=== PATIENT | female | born 1975 | race Caucasian/White ===

== ENCOUNTER → 2019-09-10 | Outpatient (CLI) | payer BC | END | disposition home or self-care (01) | LOC: LABWHC1 10:22 | PROVIDERS: ATTEND Family Medicine | DX: Z11.59 Encounter for screening for other viral diseases (principal) ==

== ENCOUNTER → 2019-12-30 | Outpatient (CLI) | payer BC | END | disposition home or self-care (01) | LOC: LABWHC1 16:50 | PROVIDERS: ATTEND Family Medicine | DX: R05 Cough (principal); R06.02 Shortness of breath | CPT/HCPCS: U0003; C9803 ==

== ENCOUNTER → 2022-07-19 | Outpatient (CLI) | payer BC ==
--- NOTE | 2022-07-20 19:27 | MM ---
Reason for Exam: Screening (asymptomatic). Patient History: Menarche at age 11. First Full-Term at age 20. Patient has history of breast feeding. Last menstrual period: 06/23/2022 Risk Values: Kalie 5 year model risk: 0.7%. NCI Lifetime model risk: 7.6%. Tissue Density: There are scattered fibroglandular densities. Findings: Analyzed By CAD. On the right, there is a nodular density medially at a middle to posterior depth for which further evaluation is recommended. On the left, nodular focal asymmetry approximately 10:00 position middle depth for which further evaluation is recommended. No suspicious microcalcification or other discrete abnormality is seen. Overall Assessment: Incomplete: need additional imaging evaluation, BI-RAD 0 Management: Special View Mammogram of both breasts. Diagnostic Breast Ultrasound of both breasts. Targeted ultrasound if any persisting abnormality on either side. Electronically signed and approved by: Tanner Mclean M.D. Radiologist
== END | disposition home or self-care (01) ==
LOC: RADMAMWWP 16:00
PROVIDERS: ATTEND Family Medicine
DX: Z12.31 Encounter for screening mammogram for malignant neoplasm of breast (principal)
CPT/HCPCS: 77067

== ENCOUNTER → 2022-09-01 | Outpatient (CLI) | payer BC ==
--- NOTE | 2022-09-01 11:54 | USB ---
Reason for Exam: Additional evaluation requested from abnormal screening. Patient History: Menarche at age 11. First Full-Term at age 20. Patient has history of breast feeding. Risk Values: Kalie 5 year model risk: 0.7%. NCI Lifetime model risk: 7.6%. Technique: Method: Targeted. Prior Study Comparison: 07/19/2022 Bilateral MG screening mammo w CAD, [facility]. Findings: The medial section of the breast of both breasts, the axilla of both breasts and the retroareolar of both breasts were scanned. Right breast: At the right 1:00 position 10 cm from the nipple there is a 1.4 cm hypoechoic area requires further evaluation with tissue sampling. Left breast: The small density seen on mammography within the left breast is not confirmed. No solid or cystic lesions are noted. Six-month follow-up mammography is advised. Overall Assessment: Suspicious, BI-RAD 4 Management: Ultrasound Core Biopsy of the right breast. A clinical breast exam by your physician is recommended on an annual basis and results should be correlated with mammographic findings. This exam should not preclude additional follow-up of suspicious palpable abnormalities. Results were given to the patient verbally at the time of exam. Electronically signed and approved by: Petey Ulrich M.D. Radiologis
--- NOTE | 2022-09-01 13:25 | MM ---
Reason for Exam: Additional evaluation requested from abnormal screening. Last screening mammogram was performed 1 month(s) ago. Patient History: Menarche at age 11. First Full-Term at age 20. Patient has history of breast feeding. Risk Values: Kalie 5 year model risk: 0.7%. NCI Lifetime model risk: 7.6%. Prior Study Comparison: 07/19/2022 Bilateral MG screening mammo w CAD, [facility]. Tissue Density: The breast tissue is heterogeneously dense. This may lower the sensitivity of mammography. Findings: Analyzed By CAD. The right 1:00 position approximately 10 cm from the nipple measuring 1.7 cm is a persistent nodular density. Ultrasound is recommended. At the left 9:00 position there is a 5 mm nodular density approximately 9 cm from the nipple. Bilateral targeted ultrasound is advised. Overall Assessment: Incomplete: need additional imaging evaluation, BI-RAD 0 Management: Diagnostic Breast Ultrasound of both breasts. . Results were given to the patient verbally at the time of exam. Patient should continue monthly self-breast exams. A clinical breast exam by your physician is recommended on an annual basis. This exam should not preclude additional follow-up of suspicious palpable abnormalities. Note on Kalie scores and lifetime risk: 1. A Kalie score greater than 3% is considered moderate risk. If this is the case, consider specialist referral to assess eligibility for a risk reducing agent. 2. If overall lifetime risk for the development of breast cancer is 20% or higher, the patient may qualify for future screening with alternating mammogram and breast MRI. Electronically signed and approved by: Petey Ulrcih M.D. Radiologis
== END | disposition home or self-care (01) ==
LOC: RADMAMWWP 10:30
PROVIDERS: ATTEND Family Medicine
DX: R92.8 Other abnormal and inconclusive findings on diagnostic imaging of breast (principal)
CPT/HCPCS: 77062; 77066

== ENCOUNTER → 2022-09-13 | Day surgery (SDC) | payer BC ==
--- NOTE | 2022-09-15 10:00 | MM ---
Reason for Exam: Post Procedure Mammogram. Last screening mammogram was performed less than 1 month ago. Patient History: Menarche at age 11. First Full-Term at age 20. Patient has history of breast feeding. Risk Values: Kalie 5 year model risk: 0.7%. NCI Lifetime model risk: 7.6%. Prior Study Comparison: 07/19/2022 Bilateral MG screening mammo w CAD, [facility]. 09/01/2022 Bilateral MG 3D work up w/cad JP, [facility]. Tissue Density: Right: The breast tissue is heterogeneously dense. This may lower the sensitivity of mammography. Pathology Description: Location: 1 o'clock, upper inner quadrant. Marker Left Behind. Needle Type: [facility] Cores: 4 Gauge: 12 The procedure of ultrasound guided core biopsy was explained to the patient. Benefits, alternatives, and risks were discussed. An informed consent was then obtained. The patient was placed in supine positioning for imaging and for the procedure. The overlying skin was prepped and draped in usual sterile fashion. Lidocaine buffered with bicarbonate was used as anesthetic into the skin and subcutaneous tissue up to area of concern in the right 1:00 breast. A brock was made with surgical scalpel. Under ultrasound guidance, a 12-gauge vacuum assisted biopsy gun device was used to obtain 4 core samples. Following this, a biopsy clip was left in lesion. The patient tolerated the procedure well without any immediate complication. The patient was kept in the radiology department for short stay after the procedure and then discharged home in stable condition. Postprocedure mammogram: The patient was transferred to mammography for physician ordered post procedure mammogram for clip placement verification. Impression: Successful, uncomplicated ultrasound guided core biopsy of area of concern in the right 1:00 breast, full pathology results to follow. Pathology Results: Result: Benign, Fibroadenoma. RIGHT BREAST, 1:00 POSITION, ULTRASOUND GUIDED CORE BIOPSY: Benign fibroadenoma with myxoid change. Overall Assessment: Benign Assessment: MG diagnostic mammo RT wo CAD - Right: Benign, BI-RAD 2. Management: Diagnostic Mammogram of the right breast in 6 months. Electronically signed and approved by: Petey Ulrich M.D. Radiologis
== END ==
LOC: RADUSWWP 07:54
PROVIDERS: ATTEND Surgery
DX: D24.1 Benign neoplasm of right breast (principal)
CPT/HCPCS: 88305; 77065; 19083; A4648

== ENCOUNTER → 2022-09-22 | Outpatient (CLI) | payer BC ==
[2022-09-22 07:52] VITALS: BP 130/83; PULSE 106; RESP 17; TEMP 97.9
--- NOTE | 2022-09-22 08:08 | P.GSHP ---
History of Present Illness H&P Date: 09/22/22 Chief Complaint: Fibroadenoma right breast Kaela is a 47-year-old female [place] [address]. This led to bilateral ultrasound and [id number]. Nothing of concern was noted in the left breast. In the right breast a 1.4 cm lesion was identi fied and ultrasound core biopsy was recommended. Core biopsy was performed on 1563. This revealed a fibroadenoma with myxoid change. This was her first mammogram. She does not feel any lumps masses or nodules of concern in either breast. She has not had any surgery on her breast. She is not complaining of any recent trauma or infection of the breast. Caffeine: coffee/2 cups/day nicotine: none chocolate: weekly BCP: still taking them since 20 hormones: none Family History: mother: from renal cancer maternal grandmother: ovarian cancer from this sister: breast cancer, dx. at 54 Hormonal History: menarche: 11 , breast fed: yes, age at first : 20f periods regular; LMP now Surgical History: tonsillectomy cyst right foot Medical History: asthma Polycystic ovarian disease Arthritis/bone spurs affecting left hip Social history: Nicotine: Negative Alcohol: occasional drugs: none - Constitutional Constitutional: Reports sweats - EENT Eyes: denies blurred vision, denies pain Ears: deny: decreased hearing, tinnitus Ears, nose, mouth and throat: Denies headache, Denies sore throat - Breasts Breasts: bilateral: as per HPI - Cardiovascular Cardiovascular: Denies chest pain, Denies shortness of breath - Respiratory Comment: asthma - Gastrointestinal Gastrointestinal: Denies abdominal pain, Denies diarrhea, Denies nausea, Denies vomiting - Genitourinary (Female) Genitourinary: Denies dysuria, Denies hematuria - Menstruation Menstruation: Reports period normal - Musculoskeletal Musculoskeletal: Reports as per HPI, Reports myalgias - Integumentary Integumentary: Denies pruritus, Denies rash - Neurological Neurological: Denies numbness, Denies weakness - Psychiatric Psychiatric: Denies anxiety, Denies depression - Endocrine Endocrine: Reports fatigue, Reports weight change - Hematologic/Lymphatic Comment: none - Allergic/Immunologic Allergic/Immunologic: Reports seasonal allergies Past Medical History Past Medical History: Asthma History of Any Multi-Drug Resistant Organisms: None Reported Past Surgical History: Section, Tonsillectomy Past Anesthesia/Blood Transfusion Reactions: No Reported Reaction Past Psychological History: No Psychological Hx Reported Smoking Status: Never smoker Past Alcohol Use History: Occasional Past Drug Use History: None Reported Medications and Allergies Home Medications Medication Instructions Recorded Confirmed Type Albuterol Inhaler [Ventolin Hfa 1 puff INHALATION TID 09/04/22 09/22/22 History Inhaler] Fluticasone Propion/Salmeterol 1 puff INHALATION DIRECTED 09/22/22 09/22/22 History [Advair 500-50 Diskus] Allergies Allergy/AdvReac Type Severity Reaction Status Date / Time erythromycin base AdvReac Nausea & Verified 09/22/22 07:40 Vomiting Surgical - Exam - General no distress - Eyes normal ocular movement - ENT no hearing loss - Neck trachea midline - Respiratory normal respiratory effort, clear to auscultation - Cardiovascular Rhythm: regular Heart Sounds: normal: S1, S2 - Abdomen Abdomen: soft, non tender, no guarding, no rigid, no rebound - Integumentary normal turgor - Neurologic no disoriented, no combative - Musculoskeletal normal gait, normal posture - Psychiatric oriented to time, oriented to person, oriented to place, speech is normal, m bessy intact Breast Exam: Bra: 40DDD Inspection: Bilateral grade 2 ptosis Palpation: Right breast: Multiple positional exam fibrocystic changes no dominant masses or nodules of concern, ecchymosis at 12 o'clock position related to recent core biopsy no evidence of infection or hematoma Right axilla: No adenopathy of concern Left breast: Multi-positional exam fibrocystic changes no dominant masses or nodules of concern Left axilla: No adenopathy of concern Results Mammogram and ultrasound results reviewed Assessment and Plan Assessment: Impression: 1.4 cm fibroadenoma right breast on core biopsy Macromastia No dominant masses or nodules of concern on examination on either breast Plan: Close surveillance bilateral ultrasound in 6 months with physician exam at that time At this time I would recommend the patient not take any hormone supplements we have discussed genetic testing she has declined at this time She does have left hip pain at this time and is planning to have left hip replacement in the near future Patient will follow up sooner any questions or concerns CC: Dr. Urias
== END ==
LOC: WWCWWP 07:36
PROVIDERS: ATTEND Surgery
DX: R92.8 Other abnormal and inconclusive findings on diagnostic imaging of breast (principal); D24.1 Benign neoplasm of right breast; J45.909 Unspecified asthma, uncomplicated; Z80.3 Family history of malignant neoplasm of breast; E28.2 Polycystic ovarian syndrome; M19.90 Unspecified osteoarthritis, unspecified site; Z79.51 Long term (current) use of inhaled steroids; Z88.1 Allergy status to other antibiotic agents

== ENCOUNTER → 2022-10-30 | Outpatient (CLI) | payer BC ==
[2022-10-30 11:02] LABS: INR 0.9 (<1.2); Prothrombin Time 9.7 sec (9.0-12.0)
--- NOTE | 2022-10-30 11:08 | XR ---
EXAMINATION TYPE: XR chest 2V DATE OF EXAM: 10/30/2022 COMPARISON: NONE TECHNIQUE: PA and lateral views submitted. HISTORY: Presurgical FINDINGS: The lungs are clear and there is no pneumothorax, pleural effusion, or focal pneumonia. Heart size normal and no overt failure. Osseous structures demonstrate hypertrophic and degenerative changes of the spine. IMPRESSION: 1. No acute process.
[2022-10-30 16:59] LABS: Blood Urea Nitrogen 9.1 mg/dL (9.0-27.0); Calcium 9.3 mg/dL (8.7-10.3); Carbon Dioxide 25.6 mmol/L (21.6-31.8); Chloride 106 mmol/L (96-109); Glucose 92 mg/dL (70-110); Potassium 4.3 mmol/L (3.5-5.5); Sodium 140 mmol/L (135-145)
[2022-10-30 17:19] LABS: Basophils # (A) 0.06 X 10*3/uL (0.00-0.10); Basophils % (A) 0.7 %; Eosinophils # (A) 0.38 X 10*3/uL (0.04-0.35); Eosinophils % (A) 4.6 %; HCT 41.7 % (37.2-46.3); HGB 13.2 d/dL (12.0-15.0); Lymphocytes # (A) 2.52 X 10*3/uL (0.90-5.00); Lymphocytes % (A) 30.8 %; MCH 28.8 pg (27.0-32.0); MCHC 31.7 d/dL (32.0-37.0); Monocytes # (A) 0.47 X 10*3/uL (0.20-1.00); Monocytes % (A) 5.7 %; NRBC Per 100 WBC 0 X 10*3/uL (0.00-0.01); Neutrophils # (A) 4.73 X 10*3/uL (1.80-7.70); Platelet Count 293 X 10*3/uL (140-440); RBC 4.58 X 10*6/uL (4.10-5.20); RDW 14.6 % (11.5-14.5); WBC 8.18 X 10*3/uL (4.50-10.00)
== END | disposition home or self-care (01) ==
LOC: LABPAT 10:19
PROVIDERS: ATTEND Orthopaedic Surgery
DX: Z01.812 Encounter for preprocedural laboratory examination (principal); Z22.322 Carrier or suspected carrier of Methicillin resistant Staphylococcus aureus
CPT/HCPCS: 71046; 80048; 85025; 85610; 85730; 87070

== ENCOUNTER 2022-11-06 05:49 | Day surgery (SDC) | payer BC ==
[2022-10-30 10:06] VITALS: BMI 36.8
[~2022-11-06 05:49] MED LIST: ACETAMINOPHEN TAB 500 MG TAB PO PRN; MELOXICAM 7.5 MG TAB PO PRN; TRANEXAMIC 1,000 MG/100ML-NACL 1,000 MG in SALINE 1 100ML.BAG IVPB PRN
[2022-11-06] MEDS ORDERED: LACTATED RINGERS 1,000 ML IV SCH (06:08)
[2022-11-06] MEDS ORDERED: ONDANSETRON 4 MG/2 ML VIAL IVP ONE ×2 (06:08→14:22)
[2022-11-06] MEDS ORDERED: DEXAMETHASONE SOD PHOSPHATE 4 MG/ML 1 ML VIAL IV ONE (06:08)
[2022-11-06] MEDS ORDERED: HYDROmorphone 0.5 MG/0.5 ML SYRINGE IVP PRN ×3 (06:08→09:31)
[2022-11-06] MEDS ORDERED: fentaNYL (PF) 50 MCG/ML 2 ML AMP IVP ONE (06:56)
[2022-11-06] MEDS ORDERED: MIDAZOLAM 2 MG/2 ML VIAL IVP ONE (06:56)
[2022-11-06] MEDS ORDERED: HYDROmorphone (PF) 1 MG/ML ONE (07:30)
[2022-11-06] MEDS ORDERED: PROPOFOL 10 MG/ML 20 ML VIAL IV ONE (07:30)
[2022-11-06] MEDS ORDERED: GLYCOPYRROLATE 0.2 MG/ML 2 ML VIAL ONE (07:30)
[2022-11-06] MEDS ORDERED: LIDOCAINE 2% INJ 20 MG/ML (2 ML VIAL) ONE (07:30)
[2022-11-06] MEDS ORDERED: ROPIVACAINE 5 MG/ML 30 ML VIAL ONE (07:30)
[2022-11-06] MEDS ORDERED: TRANEXAMIC 1,000 MG/100ML-NACL PREMIX BAG ONE (07:30)
[2022-11-06] MEDS ORDERED: SUCCINYLCHOLINE CHLORIDE 200 MG/10 ML VIAL IV ONE (07:30)
[2022-11-06] MEDS ORDERED: NEOSTIGMINE 1 MG/ML 10 ML VIAL ONE (07:30)
[2022-11-06] MEDS ORDERED: fentaNYL (PF) 50 MCG/ML 2 ML AMP ONE (07:30)
[2022-11-06] MEDS ORDERED: MIDAZOLAM 2 MG/2 ML VIAL ONE (07:30)
[2022-11-06] MEDS ORDERED: ROCURONIUM 10 MG/ML (5 ML VIAL) IV ONE (07:30)
[2022-11-06] MEDS ORDERED: ceFAZolin 1,000 MG in SODIUM CHLORIDE 0.9% 1,000 ML IRRIGATION ONE (08:04)
--- NOTE | 2022-11-06 09:25 | P.HPOR ---
History of Present Illness H&P Date: 11/06/22 Chief Complaint: Left hip osteoarthritis 47-year-old patient seen with symptomatic left hip osteoarthritis. After treatment options discussed, she elected to proceed with direct anterior left total hip arthroplasty. Past Medical History Past Medical History: Asthma, Osteoarthritis (OA) Additional Past Medical History / Comment(s): Gall bladder attack twice in last 3 yrs. History of Any Multi-Drug Resistant Organisms: None Reported Past Surgical History: Section, Tonsillectomy Additional Past Surgical History / Comment(s): Right breast biopsy. Section X1. Past Anesthesia/Blood Transfusion Reactions: No Reported Reaction Past Psychological History: No Psychological Hx Reported Smoking Status: Never smoker Past Alcohol Use History: Occasional Past Drug Use History: None Reported - Past Family History Mother Family Medical History: Cancer Additional Family Medical History / Comment(s): Renal cancer. Father Family Medical History: Cancer, Deep Vein Thrombosis (DVT) Additional Family Medical History / Comment(s): Skin cancer. Heart problems from alcohol use. Medications and Allergies Home Medications Medication Instructions Recorded Confirmed Type Albuterol Inhaler [Ventolin Hfa 1 puff INHALATION TID PRN 09/04/22 11/06/22 History Inhaler] Fluticasone Propion/Salmeterol 1 puff INHALATION DIRECTED PRN 09/22/22 11/06/22 History [Advair 500-50 Diskus] Allergies Allergy/AdvReac Type Severity Reaction Status Date / Time erythromycin base AdvReac Nausea & Verified 11/06/22 06:18 Vomiting Physical Examination Osteopathic Statement: *. No significant issues noted on an osteopathic structural exam other than those noted in the History and Physical/Consult. Diffuse tenderness about the left hip girdle. Limited range of motion left hip with severe pain. Positive hip impingement sign. Straight leg raise negative. Distal neurovascular exam is intact. Results - Diagnostic results Hip x-ray: image reviewed (Severe left hip osteoarthritis) Assessment and Plan Assessment: Left hip osteoarthritis Plan: Direct anterior left total hip arthroplasty Time with Patient: Less than 30
[2022-11-06] MEDS ORDERED: LACTATED RINGERS 1,000 ML IV ONE ×2 (09:31→11:07)
[2022-11-06] MEDS ORDERED: HYDROmorphone 1 MG/ML 1 ML SYRINGE IVP PRN (09:31)
[2022-11-06] MEDS ORDERED: HYDROcodone/APAP 5-325MG 1 EACH TAB PO PRN (09:31)
[2022-11-06] MEDS ORDERED: ONDANSETRON 4 MG/2 ML VIAL IVP PRN (09:31)
[2022-11-06] MEDS ORDERED: NALOXONE 0.4 MG/ML 1 ML VIAL IV PRN (09:31)
[2022-11-06] MEDS ORDERED: HYDROcodone/APAP 7.5-325MG 1 EACH TAB PO PRN (09:31)
--- NOTE | 2022-11-06 09:31 | P.OP ---
Date of Procedure: 11/06/22 Preoperative Diagnosis: Left hip osteoarthritis Postoperative Diagnosis: Left hip osteoarthritis Procedure(s) Performed: Direct anterior left total hip arthroplasty Implants: 1. Hugo Corail KLA size 9 high offset with collar present femoral stem 2. Glad[place]ne 52 mm press-fit acetabular shell 3. [place]ne neutral polyethylene acetabular liner 36 mm ID 52 mm OD 4. Biolox delta ceramic femoral head +1.5 36 mm Anesthesia: GETA, regional (erector spinae block) Surgeon: Durga Paul Kennel Hand #1: Carlos Manuel Lutz Estimated Blood Loss (ml): 65 Pathology: none sent Condition: stable Disposition: PACU Indications for Procedure: 47-year-old patient was seen with symptomatic left hip osteoarthritis. After having treatment options discussed, she elected to proceed with direct anterior left total hip arthroplasty. Operative Findings: see description of procedure Description of Procedure: The patient was taken to the operative suite. Patient underwent a general anest hetic by the department of anesthesia. Patient was then transferred to the Joffre table. Patient was given preoperative IV antibiotics and TXA. Both lower extremities were placed in standard leg spars. The hip was then prepped and draped in the normal sterile orthopedic fashion. A standard anterior incision was made beginning 3 cm lateral and 1 cm distal to the ASIS extending 10 cm. Dissection was then carried down through the subcutaneous soft tissues down to the fascia overlying the tensor fascia bee. An incision was now made through the fascia. Careful dissection was taken down exposing the tensor fascia bee muscle. A Cobra retractor was now placed along the medial femoral neck and a second one along the lateral femoral neck. The venous circumflex vessels were now identified, cauterized and clipped. We identified the anterior hip capsule. An incision was made through the hip capsule along the lateral border. I performed a partial anterior capsulectomy. Retractors were now placed around the femoral neck itself. A femoral neck cut was now made with a sagittal saw. It was completed with an osteotome at the lateral neck area. The femoral head was now removed without difficulty. The extremity was now rotated to 60 of external rotation. It was locked in position. Residual labrum was now debrided out. Serial reaming was performed of the acetabulum while Nehemiah RAYA assisted holding an anterior retractor for exposure. Once we reached the appropriate size and a trial was position and fit nicely. The appropriate size was now chosen opened and made available. It was introduced into the acetabulum without difficulty. The C-arm/fluoroscopy was now brought into the operative field. We made sure we had a true AP pelvic view. We now under direct C-arm/ fluoroscopy introduced into the acetabular component with appropriate version and inclination. I held the cup in appropriate position well Nehemiah RAYA used a mallet to seat the acetabular component. I noted the component now to be well seated and stable. Acetabular cup introduce her was removed. The C-arm was pulled back. An appropriate liner was introduced and clicked into position. It was felt to be stable. At this point retractors were removed. The extremity was now placed into 140 external rotation with no traction. The leg was now dropped to the ground and adducted. Appropriate retractors were now positioned along the proximal femur. We also placed our femoral look into position. Additional capsular releasing was performed to gain access to the proximal femur. We now used a box osteotome. A canal finder was now utilized. Serial broaching was now performed with the assistance of Nehemiah RAYA tapping the broaches down with a mallet while held the broach in appropriate rotation and position. This was done until we reached the appropriate size with good overall rotational stability. Appropriate calcar planing was performed. A trial head/neck was placed into position. The hip was now reduced. The C- arm/fluoroscopy was brought back into the operative field. I obtained AP pelvis was demonstrated adequate leg length alignment. The trial components appeared adequately sized and positioned. The C-arm/fluoroscopy was pulled back. Retractors were repositioned and the hip was dislocated. The leg was again taken down to the ground and adducted. Appropriate retractors were repositioned as well as the femoral hook. All trial components were removed. The femoral implant was opened along with the femoral head. The femoral implant was introduced on the appropriate handle into our pre-broached area. I held the component position well Nehmeiah RAYA used a mallet to seat the femoral component. The femoral component was now noted to be well seated and stable.. The femoral head was introduced with good positioning and fixation noted. Retractors were now removed. The hip was now reduced. There appeared be good positioning of the hip confirmed on intraoperative fluoroscopy. Spot films were obtained to document this. A second gram of TXA was given. Bipolar cautery had been utilized intermittently through the procedure for hemostasis. The wound was irrigated copiously with pulse lavage mechanical irrigation. The fascia was repaired with Vicryl suture. The subcutaneous soft tissues were repaired in layers with Vicryl suture. The skin was approximated with pernio/Dermabond. Sterile dressings were applied. Patient was then awakened, transferred to a bed and taken to recovery in stable condition. Nehemiah RAYA assisted with the complex procedure.
[2022-11-06 09:43] VITALS: TEMP 97
[2022-11-06] MEDS ORDERED: HYDROmorphone 0.5 MG/0.5 ML SYRINGE IVP ONE ×4 (09:49→14:19)
--- NOTE | 2022-11-06 10:44 | P.ANPRN ---
Procedure Note - Anesthesia - Nerve Block Performed Left Stevenson Single Time Out Performed: Yes ([id number]) Date of Procedure: 11/06/22 Procedure Start Time: 06:57 Procedure Stop Time: 07:04 Location of Patient: PreOp Indication: Acute Post-Operative Pain, Requested by Surgeon Specifically requested for management of pain by DrSalvador: Durga Paul Sedation Type: Sedate with meaningful contact maintained Preparation: Sterile Prep Position: Supine Catheter: None Needle Types: Pajunk Needle Gauge: 21 Ultrasound used to visualize needle placement: Yes Ultrasound used to observe medication spread: Yes Injectate: 0.5% Ropivacaine (see comment for volume) (30cc) Blood Aspirated: No Pain Paresthesia on Injection Noted: No Resistance on Injection: Normal Image Stored and Saved: Yes Events: Uneventful and Well Tolerated
--- NOTE | 2022-11-06 14:05 | FL ---
Intraoperative/procedural fluoroscopic services were provided. Total fluoroscopy time is 22.3 seconds with a total of 2 submitted images to PACS. Please see the operative/procedural note for further det ails. DAP: 1.2752 Gycm2
[2022-11-06 15:14] VITALS: BP 120/83; PULSE 83; RESP 16
--- NOTE | 2022-11-08 15:28 | HP ---
HISTORY AND PHYSICAL DATE OF ANTICIPATED SURGERY: 11/06/2022. HISTORY OF PRESENT ILLNESS: Kaela Hopson is a 47-year-old patient, seen with symptomatic left hip osteoarthritis. We discussed the options for treatment. She elected to proceed with direct anterior left total hip arthroplasty. Consent was obtained. PAST MEDICAL HISTORY: Asthma. PAST SURGICAL HISTORY: section. DAILY MEDICATIONS: 1. Albuterol inhaler. 2. Motrin. 3. Tylenol. ALLERGIES: Erythromycin. SOCIAL HISTORY: She denies current tobacco use. PHYSICAL EVALUATION OF THE LEFT HIP: She has limited range of motion from severe pain. Positive hip impingement sign. Straight-leg raise negative. Distal neurovascular exam is intact. RADIOGRAPHS: Radiographs of the left hip reveal severe osteoarthritic changes. IMPRESSION: 1. Left hip osteoarthritis. 2. Asthma. PLAN: Direct anterior left total hip arthroplasty. MMDELVINL / HEMALATHAN: [id number] /
== END 2022-11-06 16:01 | disposition home health service (06) ==
LOC: OR 05:49
PROVIDERS: ATTEND Orthopaedic Surgery
DX: M16.12 Unilateral primary osteoarthritis, left hip (principal); G89.18 Other acute postprocedural pain; J45.909 Unspecified asthma, uncomplicated; Z98.891 History of uterine scar from previous surgery; Z90.89 Acquired absence of other organs; Z86.59 Personal history of other mental and behavioral disorders; Z79.51 Long term (current) use of inhaled steroids; Z88.1 Allergy status to other antibiotic agents; Z79.899 Other long term (current) drug therapy
CPT/HCPCS: 97530; 97161; 64447; 81025; 86900; 86901; 86850; 73501; 27130; C1776; J2250; J0330; J1100; J2710; J0690 ×2; J2405; J3010; J1170 ×2; J2795; J2704; J2001

== ENCOUNTER → 2024-01-02 | Outpatient (CLI) | payer BC ==
--- NOTE | 2024-01-03 18:08 | MR ---
EXAMINATION TYPE: MR liver wo/w con DATE OF EXAM: 01/02/2024 3:18 PM CLINICAL INDICATION: Female, 48 years old with history of HEPATOMEGALY, NOT ELSEWHERE CLASSIFIED, abn ormal CT low density nodules seen with liver. COMPARISON: CT 10/26/2023 TECHNIQUE: Multiplanar multi-sequence imaging was performed without contrast. Post contrast imaging was performed. Post IV contrast subtraction images were also submitted for review. IV Contrast: 10 cc Gadavist FINDINGS: LOWER CHEST: No gross irregularity. ABDOMEN Liver: No evidence for cirrhosis. Signal dropout on chemical shift out of phase imaging. Scattered hi gh T2 signal nonenhancing cysts throughout the liver. Gallbladder and Bile ducts: No evidence for ductal dilation, or biliary stricture or evidence of chol edocholithiasis. Demonstrates thousand and the gallbladder lumen. Pancreas: No ductal dilation. No evidence for solid mass. Spleen: Normal for size. Adrenal glands: Unremarkable. Kidneys: No evidence for obstructive uropathy. No suspicious renal masses. Simple appearing renal cys ts in the right upper pole. Stomach and Bowel: No evidence for bowel wall thickening or evidence for obstruction. Retroperitoneum/Peritoneum: No evidence of pneumoperitoneum or free fluid. Vasculature: No aortic aneurysm. Musculoskeletal: The osseous structures appear intact. Lymph Nodes: No gross evidence for lymphadenopathy. Abdominal wall: Unremarkable. IMPRESSION: 1. Scattered simple appearing renal cysts correlate with CT 10/26/2023. 2. Hepatic steatosis. 3. Cholelithiasis. [facility] Magnus Bean, , 01/03/2024 6:05 PM
== END | disposition home or self-care (01) ==
LOC: RADMRIMAIN 14:19
PROVIDERS: ATTEND Family Medicine
DX: K76.9 Liver disease, unspecified
CPT/HCPCS: 74183

== ENCOUNTER → 2024-02-01 | Outpatient (CLI) | payer BC ==
[2024-02-01 14:59] LABS: INR 0.95 sec (0.93-1.11); Prothrombin Time 10.3 sec (9.9-11.9)
[2024-02-01 15:21] LABS: Basophils # (A) 0.04 X 10*3/uL (0.00-0.10); Basophils % (A) 0.5 %; Eosinophils # (A) 0.31 X 10*3/uL (0.04-0.35); HCT 41.4 % (37.2-46.3); HGB 13.4 g/dL (12.0-15.0); Lymphocytes # (A) 2.04 X 10*3/uL (0.90-5.00); Lymphocytes % (A) 26.5 %; MCHC 32.4 g/dL (32.0-37.0); MCV 89.6 FL (80.0-97.0); Monocytes # (A) 0.44 X 10*3/uL (0.20-1.00); Monocytes % (A) 5.7 %; NRBC Per 100 WBC 0 X 10*3/uL (0.00-0.01); Neutrophils # (A) 4.84 X 10*3/uL (1.80-7.70); Neutrophils % (A) 62.9 %; Platelet Count 326 X 10*3/uL (140-440); RBC 4.62 X 10*6/uL (4.10-5.20)
[2024-02-01 16:00] LABS: ALT 16 U/L (8-44); AST 18 U/L (13-35); Albumin 4.1 g/dL (3.8-4.9); Albumin/Globulin Ratio 1.52 Ratio (1.60-3.17); Alkaline Phosphatase 104 U/L (41-126); Blood Urea Nitrogen 8.7 mg/dL (9.0-27.0); Calcium 9.2 mg/dL (8.7-10.3); Carbon Dioxide 22.2 mmol/L (21.6-31.8); Chloride 105 mmol/L (96-109); Globulin 2.7 g/dL (1.6-3.3); Glucose 97 mg/dL (70-110); Potassium 4.3 mmol/L (3.5-5.5); Sodium 140 mmol/L (135-145); Total Bilirubin 0.3 mg/dL (0.3-1.2); Total Protein 6.8 g/dL (6.2-8.2)
== END | disposition home or self-care (01) ==
LOC: LABPAT 09:54
PROVIDERS: ATTEND Orthopaedic Surgery
DX: Z01.818 Encounter for other preprocedural examination (principal); M16.11 Unilateral primary osteoarthritis, right hip; Z22.322 Carrier or suspected carrier of Methicillin resistant Staphylococcus aureus
CPT/HCPCS: 36415; 80053; 85025; 85610; 86850; 86900; 86901; 87070; 93005

== ENCOUNTER → 2024-02-01 | Outpatient (CLI) | payer BC ==
[2024-02-01 15:54] LABS: Chol/HDL Ratio 2.84 Ratio; Iron 54 UG/DL (50-170); LDL Cholesterol,Calculated 136.5 mg/dL (0.0-131.0); T4, Free (Free Thyroxine) 0.85 ng/dL (0.80-1.80); VLDL Calculation 13.78 mg/dL (5.00-40.00)
== END | disposition home or self-care (01) ==
LOC: LABWHC1 09:57
PROVIDERS: ATTEND Nurse Practitioner Family
DX: Z00.00 Encounter for general adult medical examination without abnormal findings (principal); R53.83 Other fatigue; R73.03 Prediabetes
CPT/HCPCS: 36415; 80061; 82306; 83036; 83540; 84439; 84443; 84481

== ENCOUNTER 2024-02-11 10:37 | Day surgery (SDC) | payer BC ==
--- NOTE | 2024-02-11 08:34 | HP ---
HISTORY AND PHYSICAL DATE OF SURGERY: 02/11/2024. HISTORY OF PRESENT ILLNESS: Kaela Hopson is a 48-year-old patient, who was seen with symptomatic right hip osteoarthritis. We discussed options regarding treatment. She elected to proceed with direct anterior right total hip arthroplasty. Consent regarding the procedure was obtained. PAST MEDICAL HISTORY: Asthma, osteoarthritis. PAST SURGICAL HISTORY: Direct anterior left total hip arthroplasty, section. DAILY MEDICATIONS: 1. Albuterol inhaler. 2. Motrin. 3. Tylenol. ALLERGIES: Erythromycin. SOCIAL HISTORY: She denies tobacco use. PHYSICAL EVALUATION OF THE RIGHT HIP: She has limited range of motion with pain. Positive hip impingement sign. Straight- leg raise negative. Distal neurovascular exam is intact. IMAGING STUDIES: Right hip radiographs reveal severe osteoarthritic changes. IMPRESSION: 1. Right hip osteoarthritis. 2. Asthma. PLAN: Direct anterior right total hip arthroplasty. MMODL / IJN: [id number] /
[~2024-02-11 10:37] MED LIST changes: -ACETAMINOPHEN TAB 500 MG TAB PO PRN; -MELOXICAM 7.5 MG TAB PO PRN
[2024-02-11] MEDS: IV FLUID CONTINUATION 1,000 ML IV ONE ×2 (11:10→15:43)
[2024-02-11] MEDS: DEXAMETHASONE SOD PHOSPHATE 4 MG/ML 1 ML VIAL IVP STA (11:32)
[2024-02-11] MEDS: LACTATED RINGERS 1,000 ML BAG IV STA (11:32)
[2024-02-11] MEDS: ONDANSETRON 4 MG/2 ML VIAL IVP STA (11:33)
[2024-02-11] MEDS: ACETAMINOPHEN TAB 500 MG TAB PO PRN (11:33)
[2024-02-11] MEDS: MELOXICAM 7.5 MG TAB PO PRN (11:33)
[2024-02-11] MEDS: MIDAZOLAM 2 MG/2 ML VIAL IV ONE (11:50)
[2024-02-11] MEDS: fentaNYL (PF) 50 MCG/ML 2 ML AMP IVP STA (11:52)
[2024-02-11] MEDS ORDERED: KETAMINE HCL IN 0.9 % NACL 50 MG/5 ML SYRINGE ONE (12:07)
[2024-02-11] MEDS ORDERED: SUCCINYLCHOLINE CHLORIDE 200 MG/10 ML VIAL IV ONE (12:07)
[2024-02-11] MEDS ORDERED: fentaNYL (PF) 50 MCG/ML 2 ML AMP ONE (12:07)
[2024-02-11] MEDS ORDERED: ROPIVACAINE 5 MG/ML 30 ML VIAL ONE (12:07)
[2024-02-11] MEDS ORDERED: HYDROmorphone (PF) 1 MG/ML ONE (12:07)
[2024-02-11] MEDS ORDERED: MIDAZOLAM 2 MG/2 ML VIAL ONE (12:07)
[2024-02-11] MEDS: ceFAZolin 1,000 MG in SODIUM CHLORIDE 0.9% 1,000 ML IRRIGATION ONE (12:07)
[2024-02-11] MEDS ORDERED: TRANEXAMIC 1,000 MG/100ML-NACL PREMIX BAG ONE (12:07)
[2024-02-11] MEDS ORDERED: DEXAMETHASONE SOD PHOSPHATE 4 MG/ML 1 ML VIAL ONE (12:07)
[2024-02-11] MEDS ORDERED: PROPOFOL 10 MG/ML 20 ML VIAL IV ONE (12:07)
--- NOTE | 2024-02-11 12:08 | P.ANPRN ---
Procedure Note - Anesthesia - Nerve Block Performed Right [place] Single Time Out Performed: Yes Date of Procedure: 02/11/24 Procedure Start Time: 11:49 Procedure Stop Time: 11:54 Location of Patient: PreOp Indication: Acute Post-Operative Pain, Analgesia, Requested by Surgeon Sedation Type: Sedate with meaningful contact maintained Preparation: Sterile Prep Position: Supine Catheter: None Needle Types: Pajunk Needle Gauge: 21 Ultrasound used to visualize needle placement: Yes Ultrasound used to observe medication spread: Yes Injectate: 0.5% Ropivacaine (see comment for volume) (Ropiv 20 ml+Decadron 4mg) Blood Aspirated: No Pain Paresthesia on Injection Noted: No Resistance on Injection: Normal Image Stored and Saved: Yes Events: Uneventful and Well Tolerated
[2024-02-11] MEDS: LACTATED RINGERS 1,000 ML IV ONE (13:22)
[2024-02-11] MEDS ORDERED: NALOXONE 0.4 MG/ML 1 ML VIAL IV PRN (14:26)
[2024-02-11] MEDS ORDERED: HYDROmorphone 1 MG/ML 1 ML SYRINGE IVP PRN (14:26)
[2024-02-11] MEDS ORDERED: HYDROmorphone 0.5 MG/0.5 ML SYRINGE IVP PRN (14:26)
[2024-02-11] MEDS ORDERED: HYDROcodone/APAP 5-325MG 1 EACH TAB PO PRN (14:26)
[2024-02-11] MEDS ORDERED: ONDANSETRON 4 MG/2 ML VIAL IVP PRN (14:26)
--- NOTE | 2024-02-11 14:26 | P.OP ---
Date of Procedure: 02/11/24 Preoperative Diagnosis: Right hip osteoarthritis Postoperative Diagnosis: Right hip osteoarthritis Procedure(s) Performed: Direct anterior right total hip arthroplasty Implants: 1. DePuy Corail 135 degree KLA with collar size 9 press-fit femoral stem 2. DePuy Nicolaus 52 mm press-fit acetabular shell 3. DePuy Nicolaus neutral polyethylene acetabular liner 56 mm OD 36 mm ID 4. Biolox delta ceramic femoral head +8.5 36 mm Anesthesia: GETA, regional (Erector spinae block) Surgeon: Durga Paul Art Therapy Specialist #1: Carlos Manuel Lutz Estimated Blood Loss (ml): 60 Pathology: none sent Condition: stable Disposition: PACU Indications for Procedure: 48-year-old patient seen with symptomatic right hip osteoarthritis. After having treatment options discussed, she elected to proceed with direct anterior right total hip arthroplasty. Operative Findings: See description of procedure Description of Procedure: The patient was taken to the operative suite. Patient underwent a general anesthetic by the department of anesthesia. Patient was then transferred to the [place] table. Patient was given preoperative IV antibiotics and TXA. Both lower extremities were placed in standard leg spars. The hip was then prepped and draped in the normal sterile orthopedic fashion. A standard anterior incision was made beginning 3 cm lateral and 1 cm distal to the ASIS extending 10 cm. Dissection was then carried down through the subcutaneous soft tissues down to the fascia overlying the tensor fascia bee. An incision was now made through the fascia. Careful dissection was taken down exposing the tensor fascia bee muscle. A Cobra retractor was now placed along the medial femoral neck and a second one along the lateral femoral neck. The venous circumflex vessels were n ow identified, cauterized and clipped. We identified the anterior hip capsule. An incision was made through the hip capsule along the lateral border. I performed a partial anterior capsulectomy. Retractors were now placed around the femoral neck itself. A femoral neck cut was now made with a sagittal saw. It was completed with an osteotome at the lateral neck area. The femoral head was now removed without difficulty. The extremity was now rotated to 60 of external rotation. It was locked in position. Residual labrum was now debrided out. Serial reaming was performed of the acetabulum while Nehemiah RAYA assisted holding an anterior retractor for exposure. Once we reached the appropriate size and a trial was position and fit nicely. The appropriate size was now chosen opened and made available. It was introduced into the acetabulum without difficulty. The C-arm/fluoroscopy was now brought into the operative field. We made sure we had a true AP pelvic view. We now under direct C- arm/fluoroscopy introduced into the acetabular component with appropriate version and inclination. I held the cup in appropriate position well Nehemiah RAYA used a mallet to seat the acetabular component. I noted the component now to be well seated and stable. Acetabular cup introduce her was removed. The C-arm was pulled back. An appropriate liner was introduced and clicked into position. It was felt to be stable. At this point retractors were removed. The extremity was now placed into 140 external rotation with no traction. The leg was now dropped to the ground and adducted. Appropriate retractors were now positioned along the proximal femur. We also placed our femoral look into position. Additional capsular releasing was performed to gain access to the proximal femur. We now used a box osteotome. A canal finder was now utilized. Serial broaching was now performed with the assistance of Nehemiah RAYA tapping the broaches down with a mallet while held the broach in appropriate rotation and position. I noted a very extremely tight canal proximally. I decided to intramedullary ream. Guide was placed into the femoral canal and I intramedullary reamed up to a 10. I now resume broaching. This was done until we reached the appropriate size with good overall rotational stability. Appropriate calcar planing was performed. A trial head/neck was placed into position. The hip was now reduced. The C-arm/fluoroscopy was brought back into the operative field. I obtained an AP pelvis was demonstrated adequate leg length alignment. The trial components appeared adequately sized and positioned. The C-arm/fluoroscopy was pulled back. Retractors were repositioned and the hip was dislocated. The leg was again taken down to the ground and adducted. Appropriate retractors were repositioned as well as the femoral hook. All trial components were removed. The femoral implant was opened along with the femoral head. The femoral implant was introduced on the appropriate handle into our pre-broached area. I held the component position well Nehemiah RAYA used a mallet to seat the femoral component. The femoral component was now noted to be well seated and stable.. The femoral head was introduced with good positioning and fixation noted. Retractors were now removed. The hip was now reduced. There appeared be good positioning of the hi p confirmed on intraoperative fluoroscopy. Spot films were obtained to document this. A second gram of TXA was given. Bipolar cautery had been utilized intermittently through the procedure for hemostasis. The wound was irrigated copiously with pulse lavage mechanical irrigation. The fascia was repaired with Vicryl suture. The subcutaneous soft tissues were repaired in layers with Vicryl suture. The skin was approximated with pernio/Dermabond. Sterile dressings were applied. Patient was then awakened, transferred to a bed and taken to recovery in stable condition. Nehemiah RAYA assisted with the complex procedure.
--- NOTE | 2024-02-11 14:34 | FL ---
EXAMINATION TYPE: FL guidance operating room, XR Hip Limited RT DATE OF EXAM: 02/11/2024 2:24 PM COMPARISON: Pre Operative Images if available both CT/MRI or plain film CLINICAL INDICATION: Female, 48 years old with history of RIGHT ANTERIOR HIP; TECHNIQUE: FL guidance operating room, XR Hip Limited RT, multiple fluoroscopic images provided for p rocedure. Total fluoroscopy time: 26 seconds Total submitted images to PACS: 6 DAP: 2.1198 mGym2 Gycm2 uGym2 cGycm2 or equivalent. FINDINGS: Fluoroscopic images during internal fixation/arthroplasty demonstrate hardware in appropriate positio n. Hardware appears intact. No immediate complication identified. IMPRESSION: 1. No evidence for intraoperative complication. 2. Please see the operative/procedural note for further details. [facility], , 02/11/2024 2:31 PM
[2024-02-11] MEDS: HYDROmorphone 0.5 MG/0.5 ML SYRINGE IVP PRN ×2 (15:38→15:51)
[2024-02-11] MEDS: LACTATED RINGERS 1,000 ML IV SCH (15:41)
[2024-02-11] MEDS: HYDROcodone/APAP 7.5-325MG 1 EACH TAB PO PRN (18:09)
[2024-02-11] MEDS: ASPIRIN 325 MG TAB PO SCH (20:15)
[2024-02-11] MEDS: SENNOSIDES-DOCUSATE SODIUM 1 EACH TAB PO SCH (20:15)
[2024-02-12] MEDS ORDERED: HYDROmorphone 0.5 MG/0.5 ML SYRINGE IVP PRN (07:41)
[2024-02-12] MEDS: DEXAMETHASONE SOD PHOSPHATE 4 MG/ML 1 ML VIAL IV ONE (07:44)
[2024-02-12] MEDS: ONDANSETRON 4 MG/2 ML VIAL IVP ONE (07:44)
[2024-02-12] MEDS: LACTATED RINGERS 1,000 ML IV SCH (07:44)
[2024-02-12 08:34] LABS: Basophils # (A) 0.02 X 10*3/uL (0.00-0.10); Basophils % (A) 0.2 %; Eosinophils # (A) 0 X 10*3/uL (0.04-0.35); Eosinophils % (A) 0 %; HCT 31.7 % (37.2-46.3); HGB 10.3 g/dL (12.0-15.0); Lymphocytes # (A) 1.37 X 10*3/uL (0.90-5.00); Lymphocytes % (A) 11.3 %; MCH 28.5 pg (27.0-32.0); MCHC 32.5 g/dL (32.0-37.0); MCV 87.6 FL (80.0-97.0); Mean Platelet Volume 9.7 FL (9.5-12.2); Monocytes # (A) 0.64 X 10*3/uL (0.20-1.00); Monocytes % (A) 5.3 %; NRBC Per 100 WBC 0 X 10*3/uL (0.00-0.01); Neutrophils # (A) 9.98 X 10*3/uL (1.80-7.70); Neutrophils % (A) 82.5 %; Platelet Count 289 X 10*3/uL (140-440); RBC 3.62 X 10*6/uL (4.10-5.20); RDW 14.6 % (11.5-14.5); WBC 12.09 X 10*3/uL (4.50-10.00)
[2024-02-12] MEDS: MULTIVITAMINS, THERA 1 EACH TAB PO SCH (09:54)
[2024-02-12] MEDS: FAMOTIDINE 20 MG TAB PO SCH (09:54)
[2024-02-12] MEDS ORDERED: ALBUTEROL NEBULIZED 2.5 MG/3 ML INHALATION PRN (10:21)
[2024-02-12 11:14] VITALS: RESP 18
[2024-02-12] MEDS: SYMBICORT 160-4.5 MCG INHALER INHALATION SCH (11:26)
--- NOTE | 2024-02-12 13:46 | P.PN ---
Subjective Progress Note Date: 02/12/24 Principal diagnosis: status post direct anterior right total hip arthroplasty patient evaluated at bedside, she is doing very well at this time. Pain is well-controlled. She did very well with physical therapy. She denies headaches, lightheadedness, chest pain or shortness of breath Objective - Vital Signs Vital signs: Vital Signs Temp 98.1 F 02/12/24 07:54 Pulse 95 02/12/24 07:54 Resp 18 02/12/24 07:54 BP 133/70 02/12/24 07:54 Pulse Ox 98 02/12/24 07:54 FiO2 Intake & Output 02/11/24 02/12/24 02/12/24 18:59 06:59 18:59 Intake Total 1950 800 Output Total 60 Balance 1890 800 Weight 107.2 kg Intake: IV 1950 Intake, IV Titration 800 Amount Lactated Ringers 1,000 ml 800 @ 100 mls/hr IV .Q10H LESLEE Rx#:[id number] Output: Estimated Blood Loss 60 Other: # Voids 2 1 - Exam Right lower extremity: Incision is clean, dry, and intact. The foam dressing is in good condition. There is minimal soft tissue swelling and ecchymosis surrounding the medial and lateral aspects of the incision. Calf is soft, no tenderness with palpation. Plantar flexion, dorsiflexion, EHL, FHL are intact. Sensory exam to light touch throughout the extremity is intact, dorsal pedis pulses 2+. - Labs CBC & Chem 7: 02/12/24 03:26 Labs: Abnormal Lab Results - Last 24 Hours (Table) 02/12/24 Range/Units 03:26 WBC 12.09 H (4.50-10.00) X 10*3/uL RBC 3.62 L (4.10-5.20) X 10*6/uL Hgb 10.3 L (12.0-15.0) g/dL Hct 31.7 L (37.2-46.3) % RDW 14.6 H (11.5-14.5) % Immature Gran # 0.08 H (0.00-0.04) X 10*3/uL Neutrophils # 9.98 H (1.80-7.70) X 10*3/uL Eosinophils # 0 L (0.04-0.35) X 10*3/uL Assessment and Plan Assessment: postoperative day #1 status post right direct anterior total hip arthroplasty Plan: pain control, plan for discharge home on [place] DVT prophylaxis, aspirin 81 mg twice a day for 30 days wound care instructions discussed Home health care after discharge medical recommendations appreciated discharge planning: Patient stable for discharge home today Time with Patient: Less than 30
[2024-02-12 15:29] VITALS: BP 99/61; PULSE 110; TEMP 98.3
--- NOTE | 2024-02-12 15:34 | P.DS ---
Providers Date of admission: 02/11/2024 Expected date of discharge: 02/12/24 Attending physician: Durga Paul Consults: 02/11/24 14:26 Consult Physician Routine Consulting Provider: Lo Joshua Consult Reason/Comments: Medical management Do you want consulting provider notified?: Yes Primary care physician: [facility] Course: Date of admission: 02/11/2024 Date of discharge: 02/12/2024 Admission diagnosis: Right hip osteoarthritis Discharge diagnosis: Same Attending physician: Dr. Paul Surgical procedures: Direct anterior right total hip arthroplasty Brief history: Patient is a 48-year-old female with a history of progressive primary right hip osteoarthritis. At this point patient has failed conservative treatment measures and has opted to proceed with a elective right total hip arthroplasty. Hospital course: Details of patient's surgery can be found in operative report. Patient tolerated the procedure well and was subsequently transported to orthopedic floor. Patient's orthopeidc and medical care was provided daily. Patient had daily laboratory tests performed for evaluation of overall blood counts. Patient had daily physical therapy to include strengthening range of motion as well as education with walker ambulation. Patient was treated with Lovenox for their postoperative DVT prophylaxis during their inpatient stay. Patient was noted to have a relatively uneventful postoperative course. Patient reported satisfactory pain control with oral pain medications by postoperative day 1. Patient showed satisfactory progress with physical therapy. Patient moved steadily through the program and had no difficulty meeting the goals by postoperative day 1. Given patient's otherwise satisfactory course and having met physical therapy goals, plan is to discharge patient home with health services on postoperative day 1. Discharge condition/disposition: Patient will be discharged home with health services in stable condition. Discharge medications: Instructions are given on resumption of patient's normal daily medications per primary care recommendation, in addition patient will be prescribed Abrams; senna; aspirin 81 mg twice daily x 30 days. Discharge instructions: 1. Wound care and infection precautions, keep incision dry and covered while showering, no lotions, creams, moisturizers. No soaking, tubs, pools, hottubs. Do not scrub over the incision. 2. Weight-bear as tolerated with walker / cane until follow-up. 3. Ice and elevate when necessary. Do not exceed 20 minutes per hour with ice pack. 4. Utilize compression sleeve until seen at first follow up appointment. 5. Visiting nursing care. 6. Home physical therapy including home CPM. 7. Pain meds and anticoagulants per prescription. 8. Pain medication has potential to cause constipation. Increase oral fluid and fiber intake. Contact primary care provider if you have not had a bowel movement within 48 hours after discharge 9. No anti-inflammatory medication until discussed at first post operative visit, this including Motrin, Aleve, Mobic, Diclofenac. 10. Follow up in office at 2 weeks postop with Nehemiah Lutz PA-C / Miguel Mcdonald PA-C 11. Follow up with your primary care doctor 7-10 days after discharge. 12. Contact [facility] with any questions, . Assessment: Right hip osteoarthritis Procedures: Direct anterior right total hip arthroplasty Patient Condition at Discharge: Good Plan - Discharge Summary Discharge Rx Participant: No New Discharge Prescriptions: New Aspirin [Adult Low Dose Aspirin EC] 81 mg PO BID #60 tab HYDROcodone/APAP 7.5-325MG [Abrams 7.5] 1 each PO Q6HR PRN #28 tab PRN Reason: Pain Sennosides/Docusate Sodium [Senna-S 8.6-50 mg Tablet] 2 each PO DAILY PRN #30 tablet PRN Reason: Constipation No Action Albuterol Inhaler [Ventolin Hfa Inhaler] 1 puff INHALATION TID PRN PRN Reason: Shortness Of Breath Fluticasone Propion/Salmeterol [Advair 500-50 Diskus] 1 puff INHALATION DIRECTED Discharge Medication List Albuterol Inhaler [Ventolin Hfa Inhaler] 1 puff INHALATION TID PRN 09/04/22 [History] Fluticasone Propion/Salmeterol [Advair 500-50 Diskus] 1 puff INHALATION DIRECTED 09/22/22 [History] Aspirin [Adult Low Dose Aspirin EC] 81 mg PO BID #60 tab 02/12/24 [Rx] HYDROcodone/APAP 7.5-325MG [Abrams 7.5] 1 each PO Q6HR PRN #28 tab 02/12/24 [Rx] Sennosides/Docusate Sodium [Senna-S 8.6-50 mg Tablet] 2 each PO DAILY PRN #30 tablet 02/12/24 [Rx] Follow up Appointment(s)/Referral(s): [facility], [NON-STAFF] - 1-2 Days ([facility] will call you to schedule your in home nursing and physical therapy visits. ) Carlos Manuel Lutz, EDWIN [PHYSICIAN COUNTER CONTROL OPERATOR] - 02/26/24 10:20 am Patient Instructions/Handouts: Anterior Hip Replacement (DC) Activity/Diet/Wound Care/Special Instructions: Orthopedic Discharge Instructions: 1. Wound care and infection precautions, keep incision dry and covered while showering, no lotions, creams, moisturizers. No soaking, pools, hot tubs. Do not scrub over incision. 2. Weight-bear as tolerated with walker / cane until follow-up. 3. Ice and elevate when necessary. Do not exceed 20 minutes per hour with ice pack. 4. Utilize compression sleeve until seen at first follow up appointment. 5. Pain meds and anticoagulants per prescription. 6. Pain medication has potential to cause constipation. Increase oral fluid and fiber intake. Contact primary care provider if you have not had a bowel movement within 48 hours after discharge. 7. No anti-inflammatory medication until discussed at first post operative visit, this including Motrin, Aleve, Mobic, Diclofenac 8. Follow up in office at 2 weeks postop with Nehemiah Lutz PA-C/Miguel Mcdonald PA-C 9. Follow up with your primary care doctor 7-10 days after discharge. 10. Contact [facility] with any questions, . Wound care instructions: 1. Okay to remove surgical dressing as of 02/20/2024 2. Okay to shower directly over the incision after removal of dressing Discharge Disposition: HOME WITH HOME HEALTH SERVICES
== END 2024-02-12 16:23 | disposition home health service (06) ==
LOC: OR 10:37 → 4SSUR 14:36 → OR 02-12 16:23
PROVIDERS: ATTEND Orthopaedic Surgery
DX: M16.11 Unilateral primary osteoarthritis, right hip (principal); J45.909 Unspecified asthma, uncomplicated; Z88.1 Allergy status to other antibiotic agents; Z79.51 Long term (current) use of inhaled steroids; Z79.1 Long term (current) use of non-steroidal anti-inflammatories (NSAID)
CPT/HCPCS: 73501; 27130; J2250; J1100; J0690 ×2; J2405; J3010; J1171; 64999; 81025; 85025